=== PATIENT | female | born 1980 | race Two or more races ===

== ENCOUNTER → 2020-07-12 | Outpatient (CLI) | payer MEDICAID ==
--- NOTE | 2020-07-12 13:22 | KCIC ---
EXAM: CT coronary artery calcium screening; radiologist over read. HISTORY: Family history of heart disease. Covid 19. Coronary artery calcium screening. TECHNIQUE: Computed tomographic images of the chest were obtained without contrast. Multiplanar refor matting was performed. *One or more of the following individualized dose reduction techniques were utilized for this examina tion: 1. Automated exposure control. 2. Adjustment of the mA and/or kV according to patient size. 3. Use of iterative reconstruction technique. COMPARISON: None. FINDINGS: There is no infiltrate, pleural effusion or pneumothorax. There is no suspicious pulmonary nodule. The heart is normal in size. The visualized aorta is normal caliber. There are calcified base d on bilateral hilar granulomas. There is no acute finding involving the upper abdomen or osseous str uctures. Coronary artery calcium score: 0. IMPRESSION: 1. Coronary artery calcium score of 0. 2. No significant incidental thoracic finding. Electronically signed by: Katarzyna Turcios MD (07/12/2020 1:20 PM) [id number]
== END ==
LOC: KCIC CT 12:20
PROVIDERS: ATTEND Physician Assistant Medical
DX: Z13.6 Encounter for screening for cardiovascular disorders (principal); Z82.49 Family history of ischemic heart disease and other diseases of the circulatory system
CPT/HCPCS: 75571